=== PATIENT | female | born 1965 | race Caucasian/White ===

== ENCOUNTER 2017-03-21 16:53 | Emergency (ER) | payer OTHER, MEDICARE ==
[~2017-03-21] VITALS: Ht 157.5 cm; Wt 75.5 kg
[2017-03-21 17:05] VITALS: BP 131/86; PULSE 99; RESP 18; O2SAT 95
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
[2017-03-21] MEDS ORDERED: HYDROcodone-APAP 5-325 mg Tablet PO ONE (18:05)
[2017-03-21 18:21] VITALS: BP 136/95; PULSE 87; RESP 18; O2SAT 97
== END 2017-03-21 18:23 | disposition home or self-care (01) ==
LOC: EDUNIT# 16:53 → EDBD 16:53 → SED 16:53
DX: S13.9XXA Sprain of joints and ligaments of unspecified parts of neck, initial encounter (principal); R51 Headache; V43.52XA Car driver injured in collision with other type car in traffic accident, initial encounter; Y93.89 Activity, other specified; Y92.410 Unspecified street and highway as the place of occurrence of the external cause; Y99.8 Other external cause status; I10 Essential (primary) hypertension; E78.5 Hyperlipidemia, unspecified; F17.200 Nicotine dependence, unspecified, uncomplicated; Z88.5 Allergy status to narcotic agent; Z88.8 Allergy status to other drugs, medicaments and biological substances